=== PATIENT | male | born 1995 | race Hispanic/Latino ===

== ENCOUNTER 2019-09-24 01:36 | Emergency (ER) | payer OTHER, SELFPAY ==
[~2019-09-24] VITALS: Ht 157.5 cm; Wt 53.8 kg
[2019-09-24] MEDS ORDERED: TETANUS IMMUNE GLOBULIN (HUMAN) 250 UNITS/ML SYRINGE (J1670)(90389) IM ONE (02:15)
[2019-09-24] MEDS ORDERED: INFANRIX VACCINE SYRINGE (DIPHTH/TET/ACEL PERTUS PEDIATRIC) (CPT 90700) IM ONE (02:15)
[2019-09-24] MEDS ORDERED: LIDOCAINE 1% SDV INJ 30 ML VIAL SC SCH (02:30)
[2019-09-24] MEDS ORDERED: LIDOCAINE 1% MDV 20ML VIAL As Ordered ONE (02:59)
[2019-09-24] MEDS ORDERED: LIDOCAINE 1% MDV 20ML VIAL SC ONE (03:00)
[2019-09-24 05:13] VITALS: BP 123/77
--- NOTE | 2019-09-24 08:15 | REP ---
Left ring finger series: History: Laceration rule out foreign body. Findings: Five views of the left ring finger taken through overlying dressing demonstrate a crush type fracture of the distal tuft of the ring finger with associated soft-tissue swelling and irregularity. There is no evidence of opaque foreign body. Electronically Signed by Cordell Teixeira MD 09/24/2019 08:06 A
== END 2019-09-24 05:18 | disposition home or self-care (01) ==
LOC: M ED 01:36
DX: S61.412A Laceration without foreign body of left hand, initial encounter (principal); W26.8XXA Contact with other sharp object(s), not elsewhere classified, initial encounter; Y92.89 Other specified places as the place of occurrence of the external cause; Y99.0 Civilian activity done for income or pay
CPT/HCPCS: 12002; 73140; 90471; 90715; 96372; 99284; J1670